=== PATIENT | male | born 1995 | race Caucasian/White ===

== ENCOUNTER 2019-05-11 10:03 | Emergency (ER) | payer BC ==
[~2019-05-11] VITALS: Ht 182.8 cm; Wt 182.0 kg
[~2019-05-11 10:03] MED LIST: ABILIFY; ALBU17AE3 IH; ATOM60CA3; DOXY100C2 PO; IBP800T PO; METR500T PO; MTF500T PO; SULF1TAB35 PO; TOPI50TA20
[2019-05-11] MEDS ORDERED: HYOSCYAMINE 0.125 MG (LEVSIN) TAB PO ONE (10:45)
[2019-05-11] MEDS ORDERED: ONDANSETRON 4 MG/2 ML (SDV) Z0FRAN IVP ONE (10:45)
[2019-05-11] MEDS ORDERED: NS IV 1000 ML 1,000 ML IV SCH (10:45)
[2019-05-11] MEDS ORDERED: OSLT75C PO ×2 (10:46→10:52)
--- NOTE | 2019-05-11 10:46 | ED Cough/URI ---
General Chief Complaint: Cough/Cold/Flu Symptoms Stated Complaint: FLU EXPOSURE/COUGH/HEADACHE/NAUSEA Nursing Triage Note: AMB TO ED WITH FEMALE PATIENT REPORTS THAT HAS BEEN EXPOSED TO FLU AT WORK. 2 DAYS AGO STARTED WITH COUGH CONGESTION Sepsis Screen: No Definite Risk Allergies and Home Medications Allergies Coded Allergies: NKANo Known Allergies (Verified Allergy, Unknown, 05/28/06) Home Medications Metronidazole 500 Mg Tablet, 500 MG PO QID Prescribed by: HERACLIO MCGRATH on 04/20/15 190 Oseltamivir Phosphate 75 Mg Cap, 75 MG PO BID Prescribed by: HERACLIO MCGRATH on 05/11/19 1046 Sulfamethoxazole/Trimethoprim 1 Each Tablet, 1 EACH PO BID Prescribed by: HERACLIO MCGRATH on 04/20/15 190 Past Sqyklhf-Mqwzum-Jvbpyj Hx Patient Social History Alcohol Use: Denies Use Recreational Drug Use: No Smoking Status: Never a Smoker Recent Foreign Travel: No Contact w/Someone Who Travel: No Recent Infectious Disease Expo: No Recent Hopitalizations: Yes (HEAT EXHAUSTION 3-4 YRS AGO) Immunizations Up To Date Tetanus Booster (TDap): Less than 5yrs PED Vaccines UTD: Yes Seasonal Allergies Seasonal Allergies: No Past Medical History Surgeries: Yes Adenoidectomy, Tonsillectomy Respiratory: No Asthma, Sleep Apnea Currently Using CPAP: No Currently Using BIPAP: No Cardiac: No Heart Murmur Neurological: No Reproductive Disorders: No Sexually Transmitted Disease: No Gastrointestinal: No Musculoskeletal: No Endocrine: Yes (MORBID OBESITY) Tonsilitis Cancer: No Psychosocial: No ADD/ADHD, Bipolar Integumentary: No Blood Disorders: No Family Medical History ANXIETY 19 FATHER BIPOLAR G8 BROTHER G8 BROTHER G8 BROTHER HALF BROTHER COPD 19 MOTHER Congenital heart disease 19 MOTHER Diabetes mellitus 19 MOTHER Hypertension 19 FATHER Myocardial infarction 19 FATHER SARCOIDOSIS 19 MOTHER Physical Exam Vital Signs - First Documented 05/11/19 10:08 Temp 37.2 Pulse 120 B/P (MAP) 180/122 (141) Pulse Ox 97 O2 Delivery Room Air Capillary Refill : Less Than 3 Seconds Height: 5'11.00" Weight: 364lbs. 0.0oz. 165.085328lx; 54.00 BMI Method:Stated Progress/Results/Core Measures Suspected Sepsis Recent Fever Within 48 Hours: No Infection Criteria Present: Suspected New Infection New/Unexplained Altered Menta: No Sepsis Screen: No Definite Risk SIRS Temperature: Pulse: 120 Respiratory Rate: Blood Pressure 180 /122 Mean: 141 Results/Orders Micro Results Microbiology 05/11/19 Influenza Types A,B Antigen (SY) - Final, Complete My Orders Orders - HERACLIO MCGRATH DO Influenza A And B Antigens (05/11/19 10:15) Vital Signs/I&O 05/11/19 05/11/19 10:08 10:24 Temp 37.2 Pulse 120 B/P (MAP) 180/122 (141) Pulse Ox 97 O2 Delivery Room Air Room Air Capillary Refill : Less Than 3 Seconds Blood Pressure Mean: 141 Departure Impression Primary Impression: Influenza B Disposition: HOME, SELF-CARE Condition: Stable Departure-Patient Inst. Referrals: NO,LOCAL PHYSICIAN (PCP/Family) Primary Care Physician Patient Instructions: Flu, Adult (DC) Add. Discharge Instructions: LOTS OF CLEAR LIQUIDS--WATER, BROTH, JELLO, GATORADE TYLENOL 1 GRAM / MOTRIN 800 MG 4 TIMES A DAY FOR PAIN OR FEVER OVER THE COUNTER MEDICATIONS FOR COUGH AND CONGESTION FOLLOW UP WITH IN 4-5 DAYS IF NO BETTER CALL TOMORROW TO MAKE AN APPOINTMENT TO ESTABLISH CARE WITH All discharge instructions reviewed with patient and/or family. Voiced und erstanding. Scripts Oseltamivir Phosphate (Tamiflu) 75 Mg Cap 75 MG PO BID, #10 CAP Prov: HERACLIO MCGRATH DO 05/11/19 Work/School Note: Local Medical Staff Listing, Work Release Form Date Seen in the Emergency Department: May 11, 2019 Return to Work: May 18, 2019 HERACLIO MCGRATH DO May 11, 2019 10:46
[2019-05-11 10:58] VITALS: BP 189/113
--- OUTSIDE RECORDS SUMMARY | 2019-05-19 10:54 | XMS REPORT ---
Author Author Haritha Vallejo Organization [facility] Address [address] [place] [address] Care Team Providers Care Senior Analytical Chemist Name Role Phone CORRINA Vallejo Unavailable PROBLEMS Unknown Problems ALLERGIES No Information ENCOUNTERS Encounter Location Date Diagnosis [facility] [id number] [place] [address] Jan, [facility] [id number] [place] [address] Jul, [facility] [id number] [place] [address] Jul, [facility] [id number] [place] [address] Jul, [facility] [id number] [place] [address] Jul, [facility] [id number] [place] [address] Jul, [facility] [id number] [place] [address] Jul, [facility] [id number] [place] [address] Jul, [facility] [id number] [place] [address] Jul, [facility] [id number] [place] [address] May, [facility] [id number] [place] [address] May, [facility] [id number] [place] [address] Apr, [facility] [address] [id number] [place] [address] Apr, [facility] [id number] [place] [address] Mar, [facility] [address] [id number] [place] [address] Mar, [facility] [id number] [place] [address] Mar, [facility] [address] [id number] [place] [address] Mar, [facility] [id number] [place] [address] Jul, [facility] [id number] [place] [address] Jul, [facility] [id number] [place] [address] Jul, [facility] [address] [id number] [place] [address] Jan, [facility] [id number] [place] [address] Jan, [facility] [address] [id number] [place] [address] Dec, IMMUNIZATIONS No Known Immunizations SOCIAL HISTORY Never Assessed REASON FOR VISIT PLAN OF CARE VITAL SIGNS Height 71 in 2013-07-03 Weight 364.4 lbs 2013-07-03 Temperature 98.9 degrees Fahrenheit 2013-07-03 Heart Rate 84 bpm 2013-07-03 Respiratory Rate 16 2013-07-03 Blood pressure systolic 128 mmHg 2013-07-03 Blood pressure diastolic 86 mmHg 2013-07-03 MEDICATIONS Unknown Medications RESULTS No Results PROCEDURES Procedure Date Ordered Result Body Site X-RAY EXAM OF KNEE, 1 OR 2 July 03, 2013 INSTRUCTIONS MEDICATIONS ADMINISTERED No Known Medications
--- OUTSIDE RECORDS SUMMARY | 2019-05-19 10:54 | XMS REPORT ---
Author Author Haritha MILES Organization [employer] Address Unknown Phone Unavailable Care Team Providers Care Manager Costing Name Role Phone COY MILES CP Unavailable Allergies No Known Allergies Problems Problem Type Condition Code Onset Dates Condition Statu s Problem Headache 784.0 Active Problem Blood in stool 578.1 Active Problem Fever, unspecified 780.60 Active Problem Pain in joint, lower leg 719.46 Act kevyn Problem Screening examination for unspecified infectious disea se V75.9 Active Problem Obesity, unspecified 278.00 Active Problem Diarrhea 787.91 Active Problem Nausea with vomiting 787.01 Active Medications No Known Medications Results No Known Results Summary Purpose [employer] Submission
--- OUTSIDE RECORDS SUMMARY | 2019-05-19 10:54 | XMS REPORT ---
Author Author Haritha Bourgeois Doctor Organization [facility] Address Unknown Phone Unavailable Care Team Providers Care Genetic Scientist Name Role Phone Migration, Doctor Unavailable Unavailable PROBLEMS Unknown Problems ALLERGIES No Information ENCOUNTERS Encounter Location Date Diagnosis [facility] [address] [id number] [address] [place] [phone] Jan, [facility] [address] [id number] [address] [place] [address] Jul, [facility] [address] [id number] [address] [place] [address] Jul, [facility] [address] [id number] [address] [place] [phone] Jul, [facility] [address] [id number] [address] [place] [phone] Jul, [facility] [address] [id number] [address] [place] [phone] Jul, [facility] [address] [id number] [address] [place] [phone] Jul, [facility] [address] [id number] [address] [place] [phone] Jul, [facility] [address] [id number] [address] [place] [phone] Jul, [facility] [address] [id number] [address] [place] [phone] May, [facility] [address] [id number] [address] [place] [phone] May, [facility] [address] [id number] [address] [place] [phone] Apr, [facility] [address] [id number] [address] [place] [address] Apr, [facility] [address] [id number] [address] [place] [phone] Mar, [facility] [address] [id number] [address] [place] [phone] Mar, [facility] [address] [id number] [address] [place] [phone] Mar, [facility] [address] [id number] [address] [place] [phone] Mar, [facility] [address] [id number] [address] [place] [phone] Jul, [facility] [address] [id number] [address] [place] [phone] Jul, [facility] [address] [id number] [address] [place] [phone] Jul, [facility] [address] [id number] [address] [place] [phone] Jan, [facility] [address] [id number] [address] [place] [phone] Jan, [facility] [address] [id number] [address] [place] [phone] Dec, IMMUNIZATIONS No Known Immunizations SOCIAL HISTORY Never Assessed REASON FOR VISIT [facility] [place] CARE VITAL SIGNS MEDICATIONS Medication Instructions Dosage Frequency Start Date End Date Duration S tatus Ibuprofen 800 mg take 1 tablet (800 m g) by oral route 3 times per day with food Jul, Active Silvadene 1 % apply 1 dose a 1/16 inch (1.5 mm) thick layer to entire burn area by Topical route 1 time per day Jul, Active metformin 500 mg take 1 tablet by Ora l route 2 times per day with morning and evening meals for diabetes May, Active promethazine 25 mg 1 tablet by Oral rou te every 6 hours PRN for nausea/vomiting Jul, Active RESULTS No Results PROCEDURES No Known procedures INSTRUCTIONS MEDICATIONS ADMINISTERED No Known Medications
--- OUTSIDE RECORDS SUMMARY | 2019-05-19 10:54 | XMS REPORT ---
Author Author Haritha Bourgeois Doctor Organization [facility] Address Unknown Phone Unavailable Care Team Providers Care Yard Truck Driver Name Role Phone Migration, Doctor Unavailable Unavailable PROBLEMS Unknown Problems ALLERGIES No Information ENCOUNTERS Encounter Location Date Diagnosis [facility] [address] [id number] [address] [place] [phone] Jan, [facility] [address] [id number] [address] [place] [phone] Jul, [facility] [address] [id number] [address] [place] [phone] Jul, [facility] [address] [id number] [address] [place] [phone] Jul, [facility] [address] [id number] [address] [place] [phone] Jul, [facility] [address] [id number] [address] [place] [phone] Jul, [facility] [address] [id number] [address] [place] [phone] Jul, [facility] [address] [id number] [address] [place] [phone] Jul, [facility] [address] [id number] [address] [place] [phone] Jul, [facility] [address] [id number] [address] [place] [phone] May, [facility] [address] [id number] [address] [place] [phone] May, [facility] [address] [id number] [address] [place] [phone] Apr, [facility] [address] [id number] [address] [place] [id number] 15 Apr, 2013 [facility] [address] [id number] [address] [place] [phone] Mar, [facility] [address] [id number] [address] [place] [phone] Mar, [facility] [address] [id number] [address] [place] [phone] Mar, [facility] [address] [id number] [address] [place] [phone] Mar, [facility] [address] [id number] [address] [place] [phone] Jul, [facility] [address] [id number] [address] [place] [phone] Jul, [facility] [address] [id number] [address] [place] [phone] Jul, [facility] [address] [id number] [address] [place] [phone] Jan, [facility] [address] [id number] [address] [place] [phone] Jan, [facility] [address] [id number] [address] [place] [phone] Dec, IMMUNIZATIONS No Known Immunizations SOCIAL HISTORY Never Assessed REASON FOR VISIT [facility] [place] PLAN OF CARE VITAL SIGNS MEDICATIONS Unknown Medications RESULTS No Results PROCEDURES No Known procedures INSTRUCTIONS MEDICATIONS ADMINISTERED No Known Medications
--- OUTSIDE RECORDS SUMMARY | 2019-05-19 10:54 | XMS REPORT ---
Author Author Haritha Bourgeois Doctor Organization [facility] Address Unknown Phone Unavailable Care Team Providers Care Cant Hooker Name Role Phone Migration, Doctor Unavailable Unavailable PROBLEMS Unknown Problems ALLERGIES No Information ENCOUNTERS Encounter Location Date Diagnosis [facility] [address] [id number] [address] [place] [phone] Jan, [facility] [address] [id number] [address] [place] [phone] Jul, [facility] [address] [id number] [address] [place] [phone] Jul, [facility] [address] [id number] [address] [place] [phone] Jul, [facility] [address] [id number] [address] [place] [phone] Jul, [facility] [address] [id number] [address] [place] [phone] Jul, [facility] [address] [id number] [address] [place] [phone] Jul, [facility] [address] [id number] [address] [place] [phone] Jul, [facility] [address] [id number] [address] [place] [phone] Jul, [facility] [address] [id number] [address] [place] [phone] May, [facility] [address] [id number] [address] [place] [phone] May, [facility] [address] [id number] [address] [place] [phone] Apr, [facility] [address] [id number] [address] [place] [phone] 15 Apr, 2013 [facility] [address] [id number] [address] [place] [phone] Mar, [facility] [address] [id number] [address] [place] [phone] Mar, [facility] [address] [id number] [address] [place] [phone] Mar, [facility] [address] [id number] [address] [place] [phone] Mar, [facility] [address] [id number] [address] [place] [phone] Jul, [facility] [address] [id number] [address] [place] [phone] Jul, [facility] [address] [id number] [address] [place] [phone] Jul, [facility] [address] [id number] [address] [place] [phone] Jan, [facility] [address] [id number] [address] [place] [phone] Jan, [facility] [address] [id number] [address] [place] [phone] Dec, IMMUNIZATIONS No Known Immunizations SOCIAL HISTORY Never Assessed REASON FOR VISIT [facility] [place] PLAN OF CARE VITAL SIGNS MEDICATIONS Unknown Medications RESULTS No Results PROCEDURES No Known procedures INSTRUCTIONS MEDICATIONS ADMINISTERED No Known Medications
== END 2019-05-11 11:01 | disposition home or self-care (01) ==
LOC: EDUNIT# 10:03 → ER 10:04
DX: J10.1 Influenza due to other identified influenza virus with other respiratory manifestations (principal); E66.01 Morbid (severe) obesity due to excess calories; Z82.49 Family history of ischemic heart disease and other diseases of the circulatory system; Z68.43 Body mass index [BMI] 50.0-59.9, adult
CPT/HCPCS: 87804

== ENCOUNTER 2019-08-21 21:05 | Emergency (ER) | payer BC ==
[~2019-08-21] VITALS: Ht 183 cm; Wt 174.6 kg
[~2019-08-21 21:05] MED LIST changes: +OSLT75C PO
--- OUTSIDE RECORDS SUMMARY | 2019-08-21 21:12 | XMS REPORT ---
Author Author Haritha MILES Organization [facility] Address [address] [place] [address] Care Team Providers Care Route Clerk Name Role Phone COY MILES Unavailable PROBLEMS Unknown Problems ALLERGIES No Information ENCOUNTERS Encounter Location Date Diagnosis [facility] [address] [facility] [id number] [address] [place] [phone] 17 May, 2019 Labile hypertension R09.89 a nd Elevated blood sugar R73.9 [facility] [address] [facility] [id number] [address] [place] [phone] Jan, [facility] [address] [facility] [id number] [address] [place] [phone] Jul, [facility] [address] [facility] [id number] [address] [place] [phone] Jul, [facility] [address] [facility] [id number] [address] [place] [phone] 18 Jul, 2013 [facility] [address] [facility] [id number] [address] [place] [phone] Jul, [facility] [address] [facility] [id number] [address] [place] [phone] Jul, [facility] [address] [facility] [id number] [address] [place] [phone] Jul, [facility] [address] [facility] [id number] [address] [place] [phone] Jul, [facility] [address] [facility] [id number] [address] [place] [phone] Jul, [facility] [address] [facility] [id number] [address] [place] [phone] May, [facility] [address] [id number] [address] [place] [phone] May, [facility] [address] [id number] [address] [place] [phone] Apr, [facility] [address] [id number] [address] [place] [phone] Apr, [facility] [address] [id number] [address] [place] [phone] Mar, [facility] [address] [id number] [address] [place] [phone] Mar, [facility] [address] [id number] [address] [place] [phone] Mar, [facility] [address] [id number] [address] [place] [phone] Mar, [facility] [address] [id number] [address] [place] [phone] Jul, [facility] [address] [id number] [address] [place] [phone] Jul, [facility] [address] [id number] [address] [place] [phone] Jul, [facility] [address] [id number] [address] [place] [phone] Jan, [facility] [address] [id number] [address] [place] [phone] Jan, [facility] [address] [id number] [address] [place] [phone] Dec, IMMUNIZATIONS No Known Immunizations SOCIAL HISTORY Never Assessed REASON FOR VISIT PLAN OF CARE VITAL SIGNS MEDICATIONS No Known Medications RESULTS No Results PROCEDURES No Known procedures INSTRUCTIONS MEDICATIONS ADMINISTERED No Known Medications MEDICAL (GENERAL) HISTORY Type Description Date Medical History flu b Medical History asthma Medical History tonsil and adnoid removed 2004
--- OUTSIDE RECORDS SUMMARY | 2019-08-21 21:12 | XMS REPORT ---
Author Author Haritha MILES Organization [facility] Address [address] [place] [address] Care Team Providers Care Grinder Hand Name Role Phone COY MILES Unavailable PROBLEMS Unknown Problems ALLERGIES No Information ENCOUNTERS Encounter Location Date Diagnosis [facility] [address] [facility] [id number] [address] [place] [id number] 17 May, 2019 Labile hypertension R09.89 a nd Elevated blood sugar R73.9 [facility] [address] [facility] [id number] [address] [place] [phone] Jan, [facility] [address] [facility] [id number] [address] [place] [phone] Jul, [facility] [address] [facility] [id number] [address] [place] [phone] Jul, [facility] [address] [facility] [id number] [address] [place] [phone] 18 Jul, 2013 [facility] [address] [facility] [id number] [address] [place] [phone] Jul, [facility] [address] [facility] [id number] [address] [place] [phone] Jul, [facility] [address] [facility] [id number] [address] [place] [phone] Jul, [facility] [address] [facility] [id number] [address] [place] [phone] Jul, [facility] [address] [facility] [id number] [address] [place] [phone] Jul, [facility] [address] [facility] [id number] [address] [place] [phone] May, [facility] [address] [id number] [address] [place] [phone] May, [facility] [address] [id number] [address] [place] [phone] Apr, [facility] [address] [id number] [address] [place] [phone] Apr, [facility] [address] [id number] [address] [place] [phone] Mar, [facility] [address] [id number] [address] [place] [phone] Mar, [facility] [address] [id number] [address] [place] [phone] Mar, [facility] [address] [id number] [address] [place] [phone] Mar, [facility] [address] [id number] [address] [place] [phone] Jul, [facility] [address] [id number] [address] [place] [phone] Jul, [facility] [address] [id number] [address] [place] [phone] Jul, [facility] [address] [id number] [address] [place] [phone] Jan, [facility] [address] [id number] [address] [place] [phone] Jan, [facility] [address] [id number] [address] [place] [phone] Dec, IMMUNIZATIONS No Known Immunizations SOCIAL HISTORY Never Assessed REASON FOR VISIT PLAN OF CARE VITAL SIGNS Height 70.75 in 2013-04-16 Weight 362.1 lbs 2013-04-16 Temperature 98.2 degrees Fahrenheit 2013-04-16 Heart Rate 100 bpm 2013-04-16 Respiratory Rate 22 2013-04-16 Blood pressure systolic 122 mmHg 2013-04-16 Blood pressure diastolic 80 mmHg 2013-04-16 MEDICATIONS No Known Medications RESULTS No Results PROCEDURES No Known procedures INSTRUCTIONS MEDICATIONS ADMINISTERED No Known Medications MEDICAL (GENERAL) HISTORY Type Description Date Medical History flu b Medical History asthma Medical History tonsil and adnoid removed 2004
--- OUTSIDE RECORDS SUMMARY | 2019-08-21 21:12 | XMS REPORT ---
Author Author Haritha MILES Organization [facility] Address [address] [place] [address] Care Team Providers Care Lands Resource Manager Name Role Phone JDCOY Unavailable PROBLEMS Unknown Problems ALLERGIES No Information ENCOUNTERS Encounter Location Date Diagnosis [facility] [address] [address] 17 May, 2019 Labile hypertension R09.89 and Elevated blood sugar R73.9 [facility] [address] [address] Jan, [facility] [address] [address] 14 Jul, 2014 [facility] [address] [address] Jul, [facility] [address] [address] 18 Jul, 2013 [facility] [address] [address] Jul, [facility] [address] [address] Jul, [facility] [address] [address] Jul, [facility] [address] [address] Jul, [facility] [address] [address] Jul, [facility] [address] [address] May, [facility] [address] [address] May, [facility] [address] [id number] [place] [address] Apr, [facility] [id number] [place] [address] Apr, [facility] [id number] [place] [address] Mar, [facility] [id number] [place] [address] Mar, [facility] [id number] [place] [address] Mar, [facility] [id number] [place] [address] Mar, [facility] [id number] [place] [address] Jul, [facility] [id number] [place] [address] Jul, [facility] [id number] [place] [address] Jul, [facility] [id number] [place] [address] Jan, [facility] [id number] [place] [address] Jan, [facility] [id number] [place] [address] Dec, IMMUNIZATIONS No Known Immunizations SOCIAL HISTORY Never Assessed REASON FOR VISIT PLAN OF CARE VITAL SIGNS Height 70.75 in 2013-05-30 Weight 360 lbs 2013-05-30 Temperature 98.2 degrees Fahrenheit 2013-05-30 Heart Rate 94 bpm 2013-05-30 Respiratory Rate 22 2013-05-30 Blood pressure systolic 112 mmHg 2013-05-30 Blood pressure diastolic 74 mmHg 2013-05-30 MEDICATIONS No Known Medications RESULTS No Results PROCEDURES No Known procedures INSTRUCTIONS MEDICATIONS ADMINISTERED No Known Medications MEDICAL (GENERAL) HISTORY Type Description Date Medical History flu b Medical History asthma Medical History tonsil and adnoid removed 2004
--- OUTSIDE RECORDS SUMMARY | 2019-08-21 21:12 | XMS REPORT ---
Author Author Haritha Bourgeois Doctor Organization [facility] Address Unknown Phone Unavailable Care Team Providers Care Buttermaker Helper Name Role Phone Migration, Doctor Unavailable Unavailable PROBLEMS Unknown Problems ALLERGIES No Information ENCOUNTERS Encounter Location Date Diagnosis [facility] [id number] [place] [address] 17 May, 2019 Labile hypertension R09.89 and Elevated blood sugar R73.9 [facility] [address] [address] Jan, [facility] [address] [address] 14 Jul, 2014 [facility] [address] [address] Jul, [facility] [address] [address] 18 Jul, 2013 [facility] [address] [address] Jul, [facility] [address] [address] Jul, [facility] [address] [address] Jul, [facility] [id number] [place] [address] Jul, [facility] [address] [address] Jul, [facility] [id number] [place] [address] May, [facility] [id number] [place] [address] May, [facility] [address] [address] [place] [address] 15 Apr, 2013 [facility] [address] [id number] [place] [address] Apr, [facility] [address] [id number] [place] [address] Mar, [facility] [id number] [place] [address] Mar, [facility] [id number] [place] [address] Mar, [facility] [address] [id number] [place] [address] Mar, [facility] [id number] [place] [address] Jul, [facility] [id number] [place] [address] Jul, [facility] [id number] [place] [address] Jul, [facility] [address] [id number] [place] [address] Jan, [facility] [id number] [place] [address] Jan, [facility] [address] [id number] [place] [address] Dec, IMMUNIZATIONS No Known Immunizations SOCIAL HISTORY Never Assessed REASON FOR VISIT PLAN OF CARE VITAL SIGNS MEDICATIONS No Known Medications RESULTS No Results PROCEDURES No Known procedures INSTRUCTIONS MEDICATIONS ADMINISTERED No Known Medications MEDICAL (GENERAL) HISTORY Type Description Date Medical History flu b Medical History asthma Medical History tonsil and adnoid removed 2004
--- OUTSIDE RECORDS SUMMARY | 2019-08-21 21:12 | XMS REPORT ---
Author Author Haritha Bourgeois Doctor Organization [facility] Address Unknown Phone Unavailable Care Team Providers Care Coagulating Operator Name Role Phone Migration, Doctor Unavailable Unavailable PROBLEMS Unknown Problems ALLERGIES No Information ENCOUNTERS Encounter Location Date Diagnosis [facility] [id number] [place] [address] 17 May, 2019 Labile hypertension R09.89 and Elevated blood sugar R73.9 [facility] [address] [address] Jan, [facility] [address] [address] 14 Jul, 2014 [facility] [address] [address] Jul, [facility] [address] [address] 18 Jul, 2013 [facility] [address] [address] Jul, [facility] [address] [address] Jul, [facility] [address] [address] Jul, [facility] [id number] [place] [address] Jul, [facility] [address] [address] Jul, [facility] [id number] [place] [address] May, [facility] [id number] [place] [address] May, [facility] [address] [address] [place] [address] 15 Apr, 2013 [facility] [id number] [place] [address] Apr, [facility] [id number] [place] [address] Mar, [facility] [id number] [place] [address] Mar, [facility] [id number] [place] [address] Mar, [facility] [id number] [place] [address] Mar, [facility] [id number] [place] [address] Jul, [facility] [id number] [place] [address] Jul, [facility] [id number] [place] [address] Jul, [facility] [id number] [place] [address] Jan, [facility] [id number] [place] [address] Jan, [facility] [id number] [place] [address] Dec, IMMUNIZATIONS No Known Immunizations SOCIAL HISTORY Never Assessed REASON FOR VISIT PLAN OF CARE VITAL SIGNS Height 70.5 in 2012-07-11 Weight 350 lbs 2012-07-11 Temperature 98.6 degrees Fahrenheit 2012-07-11 Heart Rate 80 bpm 2012-07-11 Respiratory Rate 20 2012-07-11 Blood pressure systolic 120 mmHg 2012-07-11 Blood pressure diastolic 84 mmHg 2012-07-11 MEDICATIONS No Known Medications RESULTS No Results PROCEDURES Procedure Date Ordered Result Body Site ACUTE HEPATITIS PANEL July 11, 2012 COMPREHEN METABOLIC PANEL July 11, 2012 VENIPUNCT, ROUTINE* July 11, 2012 INSTRUCTIONS MEDICATIONS ADMINISTERED No Known Medications MEDICAL (GENERAL) HISTORY Type Description Date Medical History flu b Medical History asthma Medical History tonsil and adnoid removed 2004
--- OUTSIDE RECORDS SUMMARY | 2019-08-21 21:12 | XMS REPORT ---
Author Author Haritha Vallejo Organization [facility] Address [address] [place] [address] Care Team Providers Care Sheep Farmer Name Role Phone CORRINA Vallejo Unavailable PROBLEMS Unknown Problems ALLERGIES No Information ENCOUNTERS Encounter Location Date Diagnosis [facility] [address] [address] 17 May, 2019 Labile hypertension R09.89 and Elevated blood sugar R73.9 [facility] [address] [address] Jan, [facility] [address] [address] 14 Jul, 2014 [facility] [address] [address] Jul, [facility] [address] [address] 18 Jul, 2013 [facility] [address] [address] Jul, [facility] [address] [address] Jul, [facility] [address] [address] Jul, [facility] [address] [address] Jul, [facility] [address] [address] Jul, [facility] [address] [address] May, [facility] [id number] [place] [address] May, [facility] [id number] [place] [address] Apr, [facility] [id number] [place] [address] Apr, [facility] [id number] [place] [address] Mar, [facility] [id number] [place] [address] Mar, [facility] [id number] [place] [address] Mar, [facility] [id number] [place] [address] Mar, [facility] [id number] [place] [address] Jul, [facility] [id number] [place] [address] Jul, [facility] [id number] [place] [address] Jul, [facility] [id number] [place] [address] Jan, [facility] [id number] [place] [address] Jan, [facility] [id number] [place] [address] Dec, IMMUNIZATIONS No Known Immunizations SOCIAL HISTORY Never Assessed REASON FOR VISIT PLAN OF CARE VITAL SIGNS Height 71 in 2013-07-10 Weight 365.4 lbs 2013-07-10 Temperature 99 degrees Fahrenheit 2013-07-10 Heart Rate 92 bpm 2013-07-10 Respiratory Rate 16 2013-07-10 Blood pressure systolic 130 mmHg 2013-07-10 Blood pressure diastolic 92 mmHg 2013-07-10 MEDICATIONS No Known Medications RESULTS No Results PROCEDURES Procedure Date Ordered Result Body Site THER/PROPH/DIAG INJ, SC/IM July 10, 2013 COMPLETE CBC W/AUTO DIFF WBC July 10, 2013 RBC SED RATE, NONAUTOMATED July 10, 2013 ASSAY OF LIPASE July 10, 2013 COMPREHEN METABOLIC PANEL July 10, 2013 PHENERGAN 12.5 MG July 10, 2013 VENIPUNCT, ROUTINE* July 10, 2013 INSTRUCTIONS MEDICATIONS ADMINISTERED No Known Medications MEDICAL (GENERAL) HISTORY Type Description Date Medical History flu b Medical History asthma Medical History tonsil and adnoid removed 2004
--- OUTSIDE RECORDS SUMMARY | 2019-08-21 21:12 | XMS REPORT ---
Author Author Haritha MILES Organization [facility] Address [address] [place] [address] Care Team Providers Care Rating Specialist Name Role Phone COY MILES Unavailable PROBLEMS Unknown Problems ALLERGIES No Information ENCOUNTERS Encounter Location Date Diagnosis [facility] [address] [facility] [id number] [address] [place] [address] 17 May, 2019 Labile hypertension R09.89 a nd Elevated blood sugar R73.9 [facility] [address] [facility] [id number] [address] [place] [address] Jan, [facility] [address] [facility] [id number] [address] [place] [address] Jul, [facility] [address] [facility] [id number] [address] [place] [address] Jul, [facility] [address] [facility] [id number] [address] [place] [address] 18 Jul, 2013 [facility] [address] [facility] [id number] [address] [place] [address] Jul, [facility] [address] [facility] [id number] [address] [place] [address] Jul, [facility] [address] [facility] [id number] [address] [place] [address] Jul, [facility] [address] [facility] [id number] [address] [place] [address] Jul, [facility] [address] [facility] [id number] [address] [place] [address] Jul, [facility] [address] [facility] [id number] [address] [place] [address] May, [facility] [address] [id number] [address] [place] [address] May, [facility] [address] [id number] [address] [place] [address] Apr, [facility] [address] [id number] [address] [place] [address] Apr, [facility] [address] [id number] [address] [place] [address] Mar, [facility] [address] [id number] [address] [place] [address] Mar, [facility] [address] [id number] [address] [place] [address] Mar, [facility] [address] [id number] [address] [place] [address] Mar, [facility] [address] [id number] [address] [place] [address] Jul, [facility] [address] [id number] [address] [place] [address] Jul, [facility] [address] [id number] [address] [place] [address] Jul, [facility] [address] [id number] [address] [place] [address] Jan, [facility] [address] [id number] [address] [place] [address] Jan, [facility] [address] [id number] [address] [place] [address] Dec, IMMUNIZATIONS No Known Immunizations SOCIAL HISTORY Never Assessed REASON FOR VISIT PLAN OF CARE VITAL SIGNS Height 70.75 in 2013-03-31 Weight 358.3 lbs 2013-03-31 Temperature 97.4 degrees Fahrenheit 2013-03-31 Heart Rate 94 bpm 2013-03-31 Respiratory Rate 20 2013-03-31 Blood pressure systolic 112 mmHg 2013-03-31 Blood pressure diastolic 70 mmHg 2013-03-31 MEDICATIONS No Known Medications RESULTS No Results PROCEDURES Procedure Date Ordered Result Body Site COMPLETE CBC W/AUTO DIFF WBC Mar 31, 2013 ASSAY THYROID STIM HORMONE Mar 31, 2013 GLYCATED HEMOGLOBIN TEST Mar 31, 2013 LIPID PANEL Mar 31, 2013 COMPREHEN METABOLIC PANEL Mar 31, 2013 VENIPUNCT, ROUTINE* Mar 31, 2013 INSTRUCTIONS MEDICATIONS ADMINISTERED No Known Medications MEDICAL (GENERAL) HISTORY Type Description Date Medical History flu b Medical History asthma Medical History tonsil and adnoid removed 2004
--- OUTSIDE RECORDS SUMMARY | 2019-08-21 21:12 | XMS REPORT ---
Author Author We[facility]ab [facility] BrightFunnel [facility] Address [address] [address] Care Team Providers Care Wood Planer Name Role Phone COY MILES Unavailable Unavailable [facility] Unavailable [facility] Unavailable [phone] PINA WALKER Unavailable Migration, Doctor Unavailable Unavailable Migration, Doctor Unavailable Unavailable Migration, Doctor Unavailable Unavailable HERACLIO MCGRATH DO Unavailable Unavailable Unavailable Unavailable CORRINA Vallejo Unavailable CORRINA Vallejo Unavailable COY MILES Unavailable Migration, Doctor Unavailable Unavailable Migration, Doctor Unavailable Unavailable COY MILES Unavailable COY MILES Unavailable COY MILES Unavailable Unavailable Unavailable Unavailable Unavailable Allergies The data below is from unstructured sources Allergen Type Severity Reaction Status Last Updated NKANo Known Allergies Allergy Unknown Active 05/28/06 No Information Medications The data below is from unstructured sourcesNo Known Medications No known medications.No known medications. Unknown Medications Unknown Medications Unknown Medications Unknown Medications No Known Medications No Known Medications Unknown Medications Unknown Medications No Known Medications No Known Medications No Known Medications No Known Medications No Known Medications No Known Medications No Known Medications No Known Medications No Known Medications No Known Medications No Known Medications No Known Medications No Known Medications No Known Medications No Known Medications No Known Medications No Known Medications No Known Medications No Known Medications No Known Medications No Known Medications No Known Medications No Known Medications Problems Problem Normalized Date Last Normalized Normalized Provider Fa cility Classification Problem(s) Recorded Problem Problem Sta tus Duration Other Body mass Chronic Active HERACLIO MCGRATH DO [facility] Via nutritional; index (BMI) [facility] endocrine; and 50-59.9, adult Hospital - metabolic [place] disorders (3 (17919) sources.) Other lower Cough Episodic Active HERACLIO RAMILA , DO [facility] Vi a respiratory [place] disease (3 Hospital - sources.) [place] ([address]791) Residual Family history Episodic Active HERACLIO RAMILA , DO [facility] Via codes; of ischemic [facility] unclassified heart disease Hospital - (3 sources.) and other [place] diseases of (39648) the circulatory system Diabetes Hyperglycemia, Episodic Active CORRINA [facility] ty mellitus unspecified [facility] without Translations: 58000 of [facility] complication [ - Elevated [place] (99258) (7 sources.) blood sugar R73.9] Influenza (3 Influenza due Episodic Active HERACLIO RAMILA , DO [facility] Via sources.) to other [facility] identified Hospital - influenza [place] virus with (58725) other respiratory manifestations Other Morbid Chronic Active HERACLIO RAMILA , DO [facility] Via nutritional; (severe) [facility]; and obesity due to Hospital - metabolic excess [place] disorders (3 calories (95421) sources.) Other Other Episodic Active CORRINA [facility] circulatory specified [facility] disease (7 symptoms and 96926 of [facility] sources.) signs [place] (39471) involving the circulatory and respiratory systems Translations: [ - Labile hypertension R09.89] Procedures Procedure Normalized Procedure Procedure Result Performer Facility Date 07-11-2012 Acute [facility][id number][facility] 07-10-2013 Assay of lipase no information no name [facility] ([id number]) 03-31-2013 Assay of thyroid no information no name [facility] stimulating hormone [facility] (68102) 07-10-2013 Blood count complete no information no name [facility] auto&auto difrntl wbc [facility] (10665) 03-31-2013 Blood count complete no information no name [facility] auto&auto difrntl wbc [facility] (30107) 07-10-2013 Collection venous no information no name [facility] blood venipuncture [facility] (65443) 03-31-2013 Collection venous no information no name [facility] blood venipuncture [facility] (29137) 07-11-2012 Collection venous no information no name [facility] blood venipuncture [facility] (28756) 07-10-2013 Comprehensive no information no [facility] metabolic panel [facility] (07401) 03-31-2013 Comprehensive no information no name [facility] metabolic panel [facility] ([id number]) 07-11-2012 Comprehensive no information no name [facility] metabolic panel [facility] ([id number]) 03-31-2013 Hemoglobin no information no name [facility] glycosylated a1c [facility] (89804) 03-31-2013 Lipid panel no information no name [facility] (29422) 07-10-2013 Promethazine hcl no information no name [facility] injection [facility] (22269) 07-10-2013 Sedimentation rate rbc no information no name [facility] non-automated [facility] (13641) 07-10-2013 Therapeutic no information no name [facility] prophylactic/dx [facility] subq[facility] (75783) Immunizations The data below is from unstructured sources Name Given Type Tetanus Booster (TDap) Unknown Historical No Known Immunizations Results Test Name Value Interpretation Reference Range Date Time Fa cility (Normalized) (Normalized) (Medline Reference) not yet categorized on 2019-05-19 Exp date 10/2020 (no code) [facility] ([id number]) [id number] (no code) [facility] (19702) laboratory on 2019-05-19 HbA1c (Bld) 5.3 % (no code) 0 - 5.7 % [facility] [Mass fraction] [facility] (40353) Vital Signs Vital Sign Value Interpretation Reference Date Time Care Prov ider Facility (Normalized) (Normalized) Range Body height 180.34 cm (no code) cm 07-10-2013 CORRINA [facility] 13:43-[address] ([address]884) Body height 179.71 cm (no code) cm 05-30-2013 [facility] 13:18-[address] [place] [address] ([id number]) Body height 179.71 cm (no code) cm 04-16-2013 [facility] 15:09-[id number] [place] [address] ([id number]) Body height 179.71 cm (no code) cm 03-31-2013 [facility] 09:41-[address] [place] [address] (21409) Body height 179.07 cm (no code) cm 07-11-2012 Doctor Co [facility] 08:51-0400 [facility] (07589) Body 99 [degF] (no code) 97.8 - 99.0 07-10-2013 CORRINA [facility] temperature [degF] 13:43-[address] ([address]) Body 98.2 [degF] (no code) 97.8 - 99.0 05-30-2013 [facility] temperature [degF] 13:18-[address] [place] [address] ([id number]) Body 98.2 [degF] (no code) 97.8 - 99.0 04-16-2013 [facility] temperature [degF] 15:09-[address] [place] [address] ([id number]) Body 97.4 [degF] (no code) 97.8 - 99.0 03-31-2013 [facility] temperature [degF] 09:41-[address] [place] [address] ([id number]) Body 98.6 [degF] (no code) 97.8 - 99.0 07-11-2012 [facility] temperature [degF] 08:51-0400 [facility] (06332) Body weight 165.75 kg (no code) kg 07-10-2013 CORRINA [facility] 13:43-[address] ([id number]) Body weight 163.3 kg (no code) kg 05-30-2013 [facility] 13:18-[address] [place] [address] ([id number]) Body weight 164.25 kg (no code) kg 04-16-2013 [facility] 15:09-0500 [address] [facility] ([id number]) Body weight 162.52 kg (no code) kg 03-31-2013 COY [facility] 09:41-[id number] [place] [address] ([id number]) Body weight 158.76 kg (no code) kg 07-11-2012 Doctor Jon conway 08:51-0400 Migration [facility] ([id number]) Interventions No Information Plan of Treatment The data below is from unstructured sources Discharge Date 02/03/15 2:26pm Disposition 01 HOME, SELF-CARE Instructions/Education Provided Acut e Epiglottitis (GEN) Mononucleosis (GEN) Patient Bill of Rights (GEN) Prescriptions See Medication Section Referrals (Unspecified) - Reason(s) for Referral: FOLLOW UP WITH MORIS AT [facility] ON 03/01/15 AT 10 AM (Unspecified) - Care Plan and Goals See Discharge In structions Section Discharge Date 04/20/15 7:05pm Disposition 01 HOME, SELF-CARE Condition at Discharge Stable Instructions/Education Provided Charlie nidal Cyst (ED) Prescriptions See Medication Section Referrals [facility] - Primary Care Physician Additional Instructions/Education KE EP DRESSING IN PLACE AT ALL TIMES MOIST HEAT TO AREA AT 20 MINUTE INTERVALS TYLENOL AND MOTRIN NEEDED FOR PAIN FOLLOW UP WITH [facility] IN 2 DAYS FOR FURTHER CARE All discharge instructions reviewed with patient and/or family. Voiced understanding. Discharge Date 07/29/14 12:12pm Disposition 30 STILL A PATIENT Instructions/Education Provided Weig ht Management (GEN) Prescriptions See Medications Sectio n Referrals PINA WALKER MD (Unspec ified) Address: [address] [place] [id number] Reason(s) for Referral: [facility] UP [facility] Goals No Information Social History No Information Functional Status The data below is from unstructured sources Query Response Date Gaurav rded Patient Orientation Person Place Time Situation February 03, 2015 2:54pm Comprehension Ability Understands Co ncepts February 01, 2015 9:00am Query Response Date Gaurav rded Patient Orientation Person Confused July 29, 2014 3:55pm Comprehension Ability Understands Co ncepts July 29, 2014 9:00am Mental Status No Information Encounters Encounter Normalized Encounter Encounter Diagnosis Care Provi sandi Organization Date Type 05-19-2019 [facility] Other specified PINA WALKER (no [facility] symptoms and signs phone) (no phone) involving the circulatory and respiratory systems 05-11-2019 Emergency department no information HERACLIO MCGRATH DO (no [facility] - patient visit phone) [facility] 05-11-2019 (no phone) 05-19-2019 Patient encounter no information (no phone) [facility] (no phone) 05-11-2019 Patient encounter no information HERACLIO MCGRATH DO (no [facility] Via [place] procedure phone) [facility] (no phone) Medical Equipment No Information Payers No Information History general Narrative - Reported Note Type Note Facility History general Narrative - Reported Type Medical flu b History Medical asthma History Medical tonsil and adnoid removed 2 005 History [facility] ([id number]) Summary Purpose eClinicalWorks Submission Advance Directives Directive Response Recor ded Date/Time Advance Directives No 10:25pm Organ Donor Yes 01/31/15 10:25pm Resuscitation Status Full Code 01/31/15 10:25pm Directive Response Recor ded Date/Time Advance Directives No 6:45pm Organ Donor Yes 01/31/15 10:25pm Resuscitation Status Full Code 04/20/15 6:45pm Directive Response Recor ded Date/Time Advance Directives No 8:05pm Organ Donor No 10/25/14 8:05pm Resuscitation Status Full Code 10/25/14 8:05pm Directive Response Recor ded Date/Time Advance Directives No 1:45am Organ Donor No 07/29/14 1:45am Resuscitation Status Full Code 07/29/14 1:45am Discharge Instructions Patient Instructions Physician Instructions Goal/Follow Up Appt: Follow up with your primary in 4 weeks. Discharge Diet: ADA Diet Activity as Tolerated: No (no contact sports for 6 weeks due to the mono) Care Plan Goal:: Follow up with your primary in 4 weeks. No hospital discharge instructions.No hospital discharge instructions.No hospital discharge instructions. Patient Instructions Physician Instructions Goal/Follow Up Appt: Usual appointment at [facility] Discharge Diet: Other Diet (Weight loss diet) Activity as Tolerated: Yes Care Plan Goal:: Usual appointment at [facility] Additional Source Comments This clinical document has been generated using [employer] software that has been certified by the Office of the National Coordinator for Health Information Technology (ONC 15.99.04.3023.Diam.31.00.0.170369) and the National Committee for Dairy Chemist (NCQA, as an eMeasure certified technology). FOR RECORDS PERTAINING TO PATIENTS WHO ARE OR HAVE BEEN ENROLLED IN A CHEMICAL D EPENDENCY/SUBSTANCE ABUSE PROGRAM, SOME INFORMATION MAY BE OMITTED. This clinica l summary was aggregated from multiple sources. Caution should be exercised in using it in the provision of clinical care. This summary normalizes information from multiple sources, and as a consequence, information in this document may ma terially change the coding, format and clinical context of patient data. In rigo tion, data may be omitted in some cases. CLINICAL DECISIONS SHOULD BE BASED ON T HE PRIMARY CLINICAL RECORDS. [employer] provides no warranty or guara ntee of the accuracy or completeness of information in this document.The followi ng information is based on time limited clinical information UNRECOGNIZED CONTENT PROVIDED BELOW FOR UNRECOGNIZED SECTION REASON FOR VISIT [id number]
--- NOTE | 2019-08-21 21:39 | NUR ---
Received report from TREE Khan at this time to assume care of pt.
--- NOTE | 2019-08-21 21:44 | Diagnostic Imaging Report ---
EXAMINATION: Left ankle series. INDICATION: Lateral ankle pain x 4 days. FINDINGS: There are no findings of cortical disruption of the distal tibia or of the fibula. There is no widening of the ankle mortise. The talar dome is normal in morphology. The visualized portion of the hindfoot is unremarkable. There is an os trigonum. Soft tissues are unremarkable. IMPRESSION: Negative radiographs of the left ankle. Dictated by: Dictated on workstation # [id number]
--- NOTE | 2019-08-21 21:45 | Diagnostic Imaging Report ---
EXAMINATION: Left foot series. INDICATION: Foot pain. Injury four days prior. FINDINGS: Alignment of the foot appears appropriate. There are no findings of joint dislocation. There is no evidence of an acute fracture. There is no focal soft tissue abnormality. IMPRESSION: Negative radiographs of the left foot. Dictated by: Dictated on workstation # [id number]
[2019-08-21] MEDS ORDERED: METH4TAB PO (21:51)
--- NOTE | 2019-08-21 21:51 | ED Lower Extremity ---
General Chief Complaint: Lower Extremity Stated Complaint: L FOOT PAIN Nursing Triage Note: pt presents to ed with complaints of l foot pain x4 days with no known injury Nursing Sepsis Screen: No Definite Risk Source: patient History of Present Illness Date Seen by Provider: August 21, 2019 Time Seen by Provider: 21:17 Initial Comments PT ARRIVES VIA POV FROM HOME C/O LEFT FOOT PAIN FOR THE LAST 3 DAYS--PAIN IS TO LATERAL ASPECT OF LEFT FOOT AND LATERAL LEFT ANKLE AREA NO KNOWN INJURY STATES THAT THIS AREA "ALWAYS HURTS, BUT NOT THIS BAD" --ONGOING FOR A COUPLE OF MONTHS, AND HAS HAD THIS SAME PROBLEM OFF AND ON FOR A LONG TIME--NEVER SOUGHT CARE SYMPTOMS NOT ACTUALLY ANY DIFFERENT TODAY TAKES 1200 MG IBUPROFEN EVERY DAY NO PARESTHESIAS OR MOTOR DEFICITS NO CHANGE IN ACTIVITY OR CHANGE IN SHOES, ETC. PCP: JACKIE Allergies and Home Medications Allergies Coded Allergies: Matt Known Allergies (Verified Allergy, Unknown, 05/28/06) Home Medications Methylprednisolone 4 Mg Tab.ds.pk, 4 MG PO UD PER DOSE PACK INSTRUCTIONS Prescribed by: HERACLIO MCGRATH on 08/21/192150 Metronidazole 500 Mg Tablet, 500 MG PO QID Prescribed by: HERACLIO MCGRATH on 04/20/15 190 Oseltamivir Phosphate 75 Mg Cap, 75 MG PO BID Prescribed by: HERACLIO MCGRATH on 05/11/19 1052 Sulfamethoxazole/Trimethoprim 1 Each Tablet, 1 EACH PO BID Prescribed by: HERACLIO MCGRATH on 04/20/15 190 Patient Home Medication List Home Medication List Reviewed: Yes Review of Systems Constitutional: no symptoms reported Musculoskeletal: see HPI Skin: no symptoms reported Psychiatric/Neurological: No Symptoms Reported Past Iksppob-[id number]-Ugwegc Hx Past Med/Social Hx: Reviewed and Corrections made Patient Social History Alcohol Use: Denies Use Recreational Drug Use: No Smoking Status: Never a Smoker Recent Foreign Travel: No Contact w/Someone Who Travel: No Recent Infectious Disease Expo: No Recent Hopitalizations: Yes (HEAT EXHAUSTION 3-4 YRS AGO) Physical Abuse: No Sexual Abuse: No Mistreated: No Fear: No Immunizations Up To Date Tetanus Booster (TDap): Less than 5yrs PED Vaccines UTD: Yes Seasonal Allergies Seasonal Allergies: No Past Medical History Surgeries: Yes Adenoidectomy, Tonsillectomy Respiratory: Yes Asthma, Sleep Apnea Currently Using CPAP: No Currently Using BIPAP: No Cardiac: Yes Heart Murmur Neurological: No Reproductive Disorders: No Sexually Transmitted Disease: No Gastrointestinal: No Musculoskeletal: No Endocrine: Yes (MORBID OBESITY) HEENT: Yes Tonsilitis Cancer: No Psychosocial: Yes ADD/ADHD, Anxiety, Bipolar, Depression Integumentary: No Blood Disorders: No Family Medical History ANXIETY 19 FATHER BIPOLAR G8 BROTHER G8 BROTHER G8 BROTHER HALF BROTHER COPD 19 MOTHER Congenital heart disease 19 MOTHER Diabetes mellitus 19 MOTHER Hypertension 19 FATHER Myocardial infarction 19 FATHER SARCOIDOSIS 19 MOTHER Physical Exam Vital Signs Vital Signs - First Documented 08/21/19 21:11 Temp 36.1 Pulse 94 Resp 18 B/P (MAP) 124/93 (103) Pulse Ox 98 Capillary Refill : Less Than 3 Seconds Height, Weight, BMI Height: 5'11.00" Weight: 364lbs. 0.0oz. 165.792279ut; 52.00 BMI Method:Stated General Appearance: no apparent distress, obese (MORBIDLY ) Cardiovascular: normal peripheral pulses, regular rate, rhythm, no murmur Respiratory: no respiratory distress, no accessory muscle use Hips: bilateral hip normal inspection Legs: bilateral leg normal inspection Knees: bilateral knee normal inspection Ankles: right ankle normal inspection; left ankle bone tenderness, left ankle pain, left ankle soft tissue tenderness, left ankle swelling Feet: right foot normal inspection; left foot bone tenderness, left foot pain, left foot soft tissue tenderness, left foot swelling (UNABLE TO DETERMINE DEGREE OF SWELLING DUE TO BODY HABITUS, BUT BOTH FEET AND ANKLES APPEAR TO BE EQUAL IN SIZE/SWELLING. 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, no motor/sensory deficits, alert, normal mood/affect, oriented x 3 Skin: normal color, warm/dry; No ecchymosis, No rash Procedures/Interventions Splinting and Joint Reduction : Jerrell wrap: Yes Immobilizers: Step Light Walker s/m/lg Progress/Results/Core Measures Results/Orders My Orders Orders - HERACLIO MCGRATH DO Foot, Left, 3 Views (08/21/19 21:20) Ankle, Left, 3 Views (08/21/19 21:20) Jerrell Bandage (08/21/19 21:51) Steplite (08/21/19 21:51) Vital Signs/I&O 08/21/19 08/21/19 21:11 22:15 Temp 36.1 Pulse 94 96 Resp 18 20 B/P (MAP) 124/93 (103) 126/82 (103) Pulse Ox 98 96 Blood Pressure Mean: 103 Diagnostic Imaging Comments XRAYS LEFT FOOT AND ANKLE--NO ACUTE PROCESS, PER RADIOLOGIST REPORT AT 2148 Reviewed: Reviewed by Me Departure Impression Primary Impression: LEFT FOOT AND ANKLE PAIN Disposition: HOME, SELF-CARE Condition: Stable Departure-Patient Inst. Referrals: [facility] ([facility]P/Family) Primary Care Physician Patient Instructions: Muscle and Bone Pain (DC) Add. Discharge Instructions: ICE TO AREA AT 20 MINUTE INTERVALS ELEVATE FOOT MUCH POSSIBLE JERRELL WRAP AND WALKING BOOT AT ALL TIMES FOLLOW UP WITH [facility] THIS WEEK FOR FURTHER CARE All discharge instructions reviewed with patient and/or family. Voiced understanding. Scripts Methylprednisolone (Medrol) 4 Mg Tab.ds.pk 4 MG PO UD for 6 Days, #21 PKG PER DOSE PACK INSTRUCTIONS Prov: HERACLIO MCGRATH DO 08/21/19 HERACLIO MCGRATH DO August 21, 2019 21:51
[2019-08-21 22:15] VITALS: BP 126/82
== END 2019-08-21 22:14 | disposition home or self-care (01) ==
LOC: EDUNIT# 21:05 → ER 21:06
DX: M25.572 Pain in left ankle and joints of left foot (principal); M79.672 Pain in left foot; J45.909 Unspecified asthma, uncomplicated; E66.01 Morbid (severe) obesity due to excess calories; Z79.52 Long term (current) use of systemic steroids; Z82.49 Family history of ischemic heart disease and other diseases of the circulatory system; Z68.43 Body mass index [BMI] 50.0-59.9, adult
CPT/HCPCS: 73610; 73630

== ENCOUNTER 2020-08-10 12:57 | Emergency (ER) | payer SELFPAY ==
[~2020-08-10] VITALS: Ht 182 cm; Wt 172.0 kg
[~2020-08-10 12:57] MED LIST changes: +METH4TAB PO
[2020-08-10 13:09] VITALS: BP 154/102
--- NOTE | 2020-08-10 13:23 | ED Upper Extremity ---
General Chief Complaint: Upper Extremity Stated Complaint: R ARM/SHOULDER PAIN Nursing Triage Note: Pt reports pain to R shoulder. Unknown injury Nursing Sepsis Screen: No Definite Risk Source: patient Exam Limitations: no limitations History of Present Illness Date Seen by Provider: August 10, 2020 Time Seen by Provider: 13:20 Initial Comments To ER with right shoulder pain that began about 4 days ago while at work. No known injury. Pain is worsened by any movement of the right shoulder. Occasionally the entire right arm goes numb. Onset: last week Severity: moderate Pain/Injury Location: right shoulder Method of Injury: unknown Modifying Factors: Worse With Movement Allergies and Home Medications Allergies Coded Allergies: NKANo Known Allergies (Verified Allergy, Unknown, 05/28/06) Home Medications Methylprednisolone 4 Mg Tab.ds.pk, 4 MG PO UD PER DOSE PACK INSTRUCTIONS Prescribed by: HERACLIO MCGRATH on 08/21/192150 Metronidazole 500 Mg Tablet, 500 MG PO QID Prescribed by: HERACLIO MCGRATH on 04/20/15 190 Oseltamivir Phosphate 75 Mg Cap, 75 MG PO BID Prescribed by: HERACLIO MCGRATH on 05/11/19 1052 Sulfamethoxazole/Trimethoprim 1 Each Tablet, 1 EACH PO BID Prescribed by: HERACLIO MCGRATH on 04/20/15 1904 Patient Home Medication List Home Medication List Reviewed: Yes Review of Systems Constitutional: see HPI EENTM: see HPI Respiratory: no symptoms reported Cardiovascular: no symptoms reported Genitourinary: no symptoms reported Musculoskeletal: see HPI Skin: no symptoms reported Psychiatric/Neurological: No Symptoms Reported Past Thkyqoc-Nbyavp-Xxsyom Hx Patient Social History Alcohol Use: Denies Use Smoking Status: Never a Smoker Recent Infectious Disease Expo: No Recent Hopitalizations: Yes (HEAT EXHAUSTION 3-4 YRS AGO) Immunizations Up To Date Tetanus Booster (TDap): Less than 5yrs PED Vaccines UTD: Yes Seasonal Allergies Seasonal Allergies: No Past Medical History Surgeries: Yes Adenoidectomy, Tonsillectomy Respiratory: Yes Asthma, Sleep Apnea Currently Using CPAP: No Currently Using BIPAP: No Cardiac: Yes Heart Murmur Neurological: No Reproductive Disorders: No Sexually Transmitted Disease: No Gastrointestinal: No Musculoskeletal: No Endocrine: Yes (MORBID OBESITY) HEENT: Yes Tonsilitis Cancer: No Psychosocial: Yes ADD/ADHD, Anxiety, Bipolar, Depression Integumentary: No Blood Disorders: No Family Medical History ANXIETY 19 FATHER BIPOLAR G8 BROTHER G8 BROTHER G8 BROTHER HALF BROTHER COPD 19 MOTHER Congenital heart disease 19 MOTHER Diabetes mellitus 19 MOTHER Hypertension 19 FATHER Myocardial infarction 19 FATHER SARCOIDOSIS 19 MOTHER Physical Exam Vital Signs Vital Signs - First Documented 08/10/20 13:09 Temp 36.5 Pulse 80 Resp 20 B/P (MAP) 154/102 (119) Pulse Ox 98 Capillary Refill : Less Than 3 Seconds Height, Weight, BMI Height: 5'11.00" Weight: 364lbs. 0.0oz. 165.393944el; 51.00 BMI Method:Stated General Appearance: WD/WN, no apparent distress, obese, other (Alert and oriented no distress pleasant) HEENT: PERRL/EOMI, normal ENT inspection Neck: non-tender, full range of motion Respiratory: no respiratory distress, no accessory muscle use Gastrointestinal: normal bowel sounds, non tender, soft Shoulder: normal inspection, pain (Pain with resisted range of motion exer cises. Strong radial pulse. No obvious deformity or injury. Skin is normal.) Elbow/Forearm: normal inspection, non-tender, Right Wrist: Yes normal inspection, Yes non-tender Hand: normal inspection, non-tender Neurologic/Tendon: normal sensation, normal motor functions, normal tendon functions Neurologic/Psychiatric: alert, normal mood/affect, oriented x 3 Skin: normal color, warm/dry Progress/Results/Core Measures Results/Orders My Orders Orders - RODGER HERNANDEZ APRN Shoulder, Right, 3 Views (08/10/20 13:19) Ketorolac Injection (Toradol Injection) (08/10/20 13:30) Orphenadrine Inj (Ed Only) (Norflex Inje (08/10/20 13:30) Vital Signs/I&O 08/10/20 13:09 Temp 36.5 Pulse 80 Resp 20 B/P (MAP) 154/102 (119) Pulse Ox 98 Blood Pressure Mean: 119 Departure Communication (Admissions) NAME: KATELYN LEONROOSEVELT Olivarez [facility] REC#: [id number] PT STATUS: REG ER : 1995 PHYSICIAN: RODGER HERNANDEZ APRN ADMIT DATE: 08/10/20/ER Draft Date of Exam:08/10/20 SHOULDER, RIGHT, 3 VIEWS INDICATION: Right shoulder pain. Three views of the right shoulder show no fracture, dislocation or other acute abnormalities. IMPRESSION: Negative right shoulder. Dictated on workstation # [id number] Dict: 08/10/20 1337 Trans: 08/10/20 1340 [facility] [id number] Interpreted by: RAPHAEL BARNEY MD Electronically signed by: Impression Primary Impression: Internal derangement of right shoulder Disposition: 01 HOME, SELF-CARE Condition: Stable Departure-Patient Inst. Decision time for Depature: 13:21 [place]: [facility] [place] Primary Care Physician PINA WALKER MD (Family) Primary Care Physician Patient Instructions: Shoulder Labral Tear, Shoulder Pain (DC) Add. Discharge Instructions: Pain persists in the next week then you need to follow-up with your primary care provider to discuss obtaining an MRI to evaluate the labrum. All discharge instructions reviewed with patient and/or family. Voiced understanding. Work/School Note: Work Release Form Date Seen in the Emergency Department: August 10, 2020 Return to Work: August 10, 2020 Other Restrictions Listed Below: no use of right arm x7 days RODGER HERNANDEZ APRN August 10, 2020 13:23
[2020-08-10] MEDS ORDERED: ORPHENADRINE 60 MG/2 ML (NORFLEX) AMP (ED ONLY) IM ONE (13:30)
[2020-08-10] MEDS ORDERED: KETOROLAC 60 MG/2 ML VIAL IM ONE (13:30)
--- NOTE | 2020-08-10 13:40 | Diagnostic Imaging Report ---
INDICATION: Right shoulder pain. Three views of the right shoulder show no fracture, dislocation or other acute abnormalities. IMPRESSION: Negative right shoulder. Dictated by: Dictated on workstation # [id number]
== END 2020-08-10 13:56 | disposition home or self-care (01) ==
LOC: EDUNIT# 12:57 → ER 12:58
DX: M24.9 Joint derangement, unspecified (principal); E66.01 Morbid (severe) obesity due to excess calories; J45.909 Unspecified asthma, uncomplicated; Z68.43 Body mass index [BMI] 50.0-59.9, adult; Z79.52 Long term (current) use of systemic steroids
CPT/HCPCS: 73030

== ENCOUNTER 2020-11-03 02:17 | Emergency (ER) | payer SELFPAY ==
[~2020-11-03] VITALS: Ht 182.9 cm; Wt 172.4 kg
[~2020-11-03 02:17] MED LIST changes: -SULF1TAB35 PO; +SULF1TAB38 PO
[2020-11-03 02:25] VITALS: BP 148/97
--- NOTE | 2020-11-03 03:15 | ED Lower Extremity ---
General Chief Complaint: Lower Extremity Stated Complaint: RT FOOT PAIN Nursing Triage Note: c/o right lateral foot pain x1 day. denies injury Source: patient Exam Limitations: no limitations Allergies and Home Medications Allergies Coded Allergies: NKANo Known Allergies (Verified Allergy, Unknown, 05/28/06) Past Abskfpn-Aujtmy-Ahyraw Hx Patient Social History Tobacco Use?: No Substance use?: No Alcohol Use?: No Pt feels they are or have been: No Immunizations Up To Date Tetanus Booster (TDap): Less than 5yrs PED Vaccines UTD: Yes Seasonal Allergies Seasonal Allergies: No Past Medical History Surgery/Hospitalization HX: t/a Surgeries: Yes Adenoidectomy, Tonsillectomy Respiratory: Yes Asthma, Sleep Apnea Currently Using CPAP: No Currently Using BIPAP: No Cardiac: Yes Heart Murmur Neurological: No Reproductive Disorders: No Sexually Transmitted Disease: No Gastrointestinal: No Musculoskeletal: No Endocrine: Yes (MORBID OBESITY) HEENT: Yes Tonsilitis Cancer: No Psychosocial: Yes ADD/ADHD, Anxiety, Bipolar, Depression Integumentary: No Blood Disorders: No Family Medical History ANXIETY 19 FATHER BIPOLAR G8 BROTHER G8 BROTHER G8 BROTHER HALF BROTHER COPD 19 MOTHER Congenital heart disease 19 MOTHER Diabetes mellitus 19 MOTHER Hypertension 19 FATHER Myocardial infarction 19 FATHER SARCOIDOSIS 19 MOTHER Physical Exam Vital Signs Vital Signs - First Documented 11/03/20 02:25 Temp 36.1 Pulse 111 Resp 18 B/P (MAP) 148/97 (114) Pulse Ox 98 O2 Delivery Room Air Capillary Refill : Less Than 3 Seconds Height, Weight, BMI Height: 5'11.00" Weight: 364lbs. 0.0oz. 165.155932wm; 51.00 BMI Method:Stated Progress/Results/Core Measures Results/Orders My Orders Orders - EUGENIE ALEXANDER MD Foot, Right, 3 View (11/03/20 02:29) Vital Signs/I&O 11/03/20 02:25 Temp 36.1 Pulse 111 Resp 18 B/P (MAP) 148/97 (114) Pulse Ox 98 O2 Delivery Room Air Blood Pressure Mean: 114 Departure Impression Primary Impression: Right foot pain Disposition: 01 HOME, SELF-CARE Condition: Stable Departure-Patient Inst. Decision time for Depature: 03:12 Referrals: [facility] (PCP) Primary Care Physician PINA WALKER MD (Family) Primary Care Physician Patient Instructions: NO INSTRUCTIONS GIVEN Add. Discharge Instructions: You may treat your pain with a combination of Tylenol (acetaminophen) up to 1000 mg every 6 hours as needed and/or ibuprofen up to 600 mg every 6 hours as needed. Avoid activities that specifically aggravate this pain. Continue to wear cushioned well supportive shoes. Seek referral to an orthopedist such as the orthopedic provider at [facility] or a icu manager. Call with questions or concerns. Return to the ER if you have worsening symptoms. The official read of your x-ray by a radiologist is pending. Please call back after 10:00 this morning to get the official report. All discharge instructions reviewed with patient and/or family. Voiced understanding. EUGENIE ALEXANDER MD Nov 03, 2020 03:15
--- NOTE | 2020-11-03 06:15 | Diagnostic Imaging Report ---
INDICATION: Right foot pain. FINDINGS: 3 views. No fractures, dislocations or other bony abnormalities demonstrated. Articulating surfaces are smooth. IMPRESSION: Normal right foot. Dictated by: Dictated on workstation # [id number]
== END 2020-11-03 03:19 | disposition home or self-care (01) ==
LOC: EDUNIT# 02:17 → ER 02:19
DX: M79.671 Pain in right foot (principal); J45.909 Unspecified asthma, uncomplicated; G47.30 Sleep apnea, unspecified; E66.01 Morbid (severe) obesity due to excess calories; Z68.43 Body mass index [BMI] 50.0-59.9, adult
CPT/HCPCS: 73630